=== PATIENT | female | born 1965 | race Hispanic/Latino ===

== ENCOUNTER 2020-07-02 17:11 | Inpatient (IN) | payer OTHER ==
--- NOTE | 2020-07-02 19:24 | Emergency Department Report ---
HPI - General Chief Complaint: Dyspnea/Respdistress Time Seen by Provider: 07/02/20 19:02 - [facility] HPI: Room 17 The patient is a 54-year-old female present with a chief complaint of shortness of breath. Patient states she tested positive for COVID-19 approximate 1 week ago. Patient states her symptoms included a nonproductive cough fatigue and fever. The patient states this afternoon she developed shortness of breath. Patient has not on home O2. Patient's was admitted to the ICU for COVID-19 ED Past Medical Hx - Past Medical History Previous Medical History?: Yes Additional medical history: FIBROMYALGIA, TACHAYCARDIA - Surgical History Past Surgical History?: Yes Hx Cholecystectomy: Yes Hx Appendectomy: Yes - Family History Family history: no significant - Social History Smoking Status: Never Smoker Substance Use Type: None ED Review of Systems ROS: Stated complaint: COVID-19 POSITIVE Other details as noted in HPI Constitutional: fever, malaise Eyes: denies: eye pain ENT: denies: throat pain Respiratory: cough, shortness of breath Cardiovascular: denies: chest pain Endocrine: no symptoms reported Gastrointestinal: denies: abdominal pain Genitourinary: denies: dysuria Musculoskeletal: denies: back pain Neurological: denies: headache Physical Exam - Physical Exam Vital Signs: Vital Signs 07/02/20 07/02/20 07/02/20 17:30 17:36 17:45 Temperature 98.1 F Pulse Rate 112 H 111 H 108 H Respiratory 26 H 24 22 Rate Blood Pressure 130/77 130/77 O2 Sat by Pulse 97 98 Oximetry 07/02/20 07/02/20 07/02/20 18:00 18:15 18:30 Temperature Pulse Rate 115 H 115 H 119 H Respiratory 24 19 28 H Rate Blood Pressure 135/69 135/69 130/73 O2 Sat by Pulse 92 92 89 Oximetry 07/02/20 18:45 Temperature Pulse Rate 114 H Respiratory 27 H Rate Blood Pressure 130/73 O2 Sat by Pulse 91 Oximetry Physical Exam: GENERAL: The patient is well-developed well-nourished female lying on stretcher not appearing to be in acute distress. [] HEENT: Normocephalic. Atraumatic. Extraocular motions are intact. Patient has moist mucous membranes. NECK: Supple. No meningitic signs are noted. There is no adenopathy noted. CHEST/LUNGS: Clear to auscultation. There is no respiratory distress noted. HEART/CARDIOVASCULAR: Regular. There is tachycardia. There is no gallop rub or murmur. ABDOMEN: Abdomen is soft, nontender. Patient has normal bowel sounds. There is no abdominal distention. SKIN: There is no rash. There is no edema. There is no diaphoresis. NEURO: The patient is awake, alert, and oriented. The patient is cooperative. The patient has normal speech MUSCULOSKELETAL: There is no evidence of acute injury. ED Course Vital Signs 07/02/20 07/02/20 07/02/20 17:30 17:36 17:45 Temperature 98.1 F Pulse Rate 112 H 111 H 108 H Respiratory 26 H 24 22 Rate Blood Pressure 130/77 130/77 O2 Sat by Pulse 97 98 Oximetry 07/02/20 07/02/20 07/02/20 18:00 18:15 18:30 Temperature Pulse Rate 115 H 115 H 119 H Respiratory 24 19 28 H Rate Blood Pressure 135/69 135/69 130/73 O2 Sat by Pulse 92 92 89 Oximetry 07/02/20 18:45 Temperature Pulse Rate 114 H Respiratory 27 H Rate Blood Pressure 130/73 O2 Sat by Pulse 91 Oximetry ED Medical Decision Making - Lab Data Result diagrams: 07/02/20 19:23 07/02/20 19:23 Laboratory Tests 07/02/20 07/02/20 07/02/20 19:23 19:23 19:23 WBC 7.3 RBC 4.63 Hgb 14.7 H Hct 42.1 MCV 91 MCH 32 MCHC 35 H RDW 12.6 L Plt Count 279 Lymph % (Auto) 16.0 [place] % (Auto) 12.5 H Eos % (Auto) 0.2 Baso % (Auto) 0.2 Lymph # (Auto) 1.2 [place] # (Auto) 0.9 H Eos # (Auto) 0.0 Baso # (Auto) 0.0 Seg Neutrophils % 71.1 H Seg Neutrophils # 5.2 PT 13.7 INR 1.07 D-Dimer 767.52 H ABG pH ABG pCO2 ABG pO2 ABG HCO3 ABG O2 Saturation ABG O2 Content ABG Base Excess ABG Hemoglobin ABG Carboxyhemoglobin ABG Methemoglobin Oxyhemoglobin FiO2 Sodium 132 L Potassium 3.1 L Chloride 91.8 L Carbon Dioxide 29 Anion Gap 14 BUN 7 Creatinine 0.6 Estimated GFR > 60 BUN/Creatinine Ratio 12 Glucose 99 Calcium 9.3 Ferritin Lactate Dehydrogenase Total Creatine Kinase 153 H CK-MB (CK-2) 1.6 CK-MB (CK-2) Rel Index 1.0 Troponin T < 0.010 C-Reactive Protein NT-Pro-B Natriuret Pep 83.89 07/02/20 07/02/20 07/02/20 19:23 19:23 19:40 WBC RBC Hgb Hct MCV MCH MCHC RDW Plt Count Lymph % (Auto) [place] % (Auto) Eos % (Auto) Baso % (Auto) Lymph # (Auto) [place] # (Auto) Eos # (Auto) Baso # (Auto) Seg Neutrophils % Seg Neutrophils # PT INR D-Dimer ABG pH 7.462 H ABG pCO2 38.1 ABG pO2 51.9 L ABG HCO3 26.6 H ABG O2 Saturation 90.1 L ABG O2 Content 17.7 ABG Base Excess 2.8 ABG Hemoglobin 14.3 ABG Carboxyhemoglobin 1.2 ABG Methemoglobin 0.6 Oxyhemoglobin 88.4 L FiO2 21 Sodium Potassium Chloride Carbon Dioxide Anion Gap BUN Creatinine Estimated GFR BUN/Creatinine Ratio Glucose 99 Calcium Ferritin 1336.0 H Lactate Dehydrogenase 394 H Total Creatine Kinase CK-MB (CK-2) CK-MB (CK-2) Rel Index Troponin T C-Reactive Protein 28.10 H NT-Pro-B Natriuret Pep - Radiology Data Radiology results: report reviewed (Chest x-ray), image reviewed (Chest x-ray) interpreted by me: Chest [id number] patchy infiltrates. No pneumothorax. No foreign body seen Chest x-ray (read by radiologist)-patchy bilateral pulmonary opacities are concerning for multifocal pneumonia or atypical viral infection. - Differential Diagnosis COVID-19 Critical care attestation.: If time is entered above; I have spent that time in minutes in the direct care of this critically ill patient, excluding procedure time. ED Disposition Clinical Impression: COVID-19, Hypoxia, Bilateral pneumonia Disposition: OP ADMIT IP TO THIS HOSP Is pt being admited?: Yes Condition: Serious Instructions: Bacterial Pneumonia (ED) Referrals: [facility] [Other] - 3-5 Days Time of Disposition: 20:19 (Hospitalist paged)
[2020-07-02 19:54] LABS: Basophils % (Auto) 0.2 % (0.0-1.8); Eosinophils % (Auto) 0.2 % (0.0-4.3); Hematocrit 42.1 % (30.3-42.9); Hemoglobin 14.7 gm/dl (10.1-14.3); Lymphocytes # (Auto) 1.2 K/mm3 (1.2-5.4); Mean Corpuscular HGB Conc 35 % (30-34); Mean Corpuscular Volume 91 fl (79-97); Monocytes # (Auto) 0.9 K/mm3 (0.0-0.8); Monocytes % (Auto) 12.5 % (0.0-7.3); Platelet Count 279 K/mm3 (140-440); Red Blood Count 4.63 M/mm3 (3.65-5.03); Red Cell Distribution Width 12.6 % (13.2-15.2)
[2020-07-02 19:58] LABS: ABG Base Excess 2.8 mmol/L (-2.0-3.0); ABG HCO3 26.6 mmol/L (20.0-26.0); ABG Methemoglobin 0.6 % (0.0-1.5); ABG Oxygen Saturation 90.1 % (95.0-99.0); ABG PCO2 38.1 mm Hg; ABG PH 7.462 pH Units (7.350-7.450); ABG PO2 51.9 mm Hg (80.0-90.0)
[2020-07-02 20:07] LABS: Creatine Kinase MB 1.6 ng/mL (0.0-4.0)
[2020-07-02 20:08] LABS: C-Reactive Protein 28.1 mg/dL (0.00-1.30); INR 1.07 (0.87-1.13)
--- NOTE | 2020-07-02 20:08 | XRay Report ---
CHEST 1 VIEW 07/02/2020 6:56 PM INDICATION / CLINICAL INFORMATION: Shortness of breath, cough, Covid positive. COMPARISON: None available. FINDINGS: SUPPORT DEVICES: None. HEART / MEDIASTINUM: No significant abnormality. LUNGS / PLEURA: There are patchy bilateral pulmonary opacities. No pneumothorax. ADDITIONAL FINDINGS: No significant additional findings. IMPRESSION: 1. Patchy bilateral pulmonary opacities are concerning for multifocal pneumonia or atypical viral inf ection. Signer Name: Aman Blanton MD Signed: 07/02/2020 8:04 PM Workstation Name: [id number]
[2020-07-02 20:09] LABS: Blood Urea Nitrogen 7 mg/dL (7-17); Calcium 9.3 mg/dL (8.4-10.2); Hemolysis Index 7
[2020-07-02 20:11] LABS: BUN/Creatinine Ratio 12
[2020-07-02] MEDS ORDERED: POTASSIUM CHLORIDE ER 20 MEQ TAB PO ONE (20:14)
[2020-07-02] MEDS ORDERED: AZITHROMYCIN 500 MG in SODIUM CHLORIDE 0.9% 250ML 250 ML IV ONE (21:18)
[2020-07-02] MEDS ORDERED: dexAMETHasone 4 MG/ML VIAL IV NR (22:00)
[2020-07-02] MEDS ORDERED: ACETAMINOPHEN 325 MG TAB PO PRN (22:29)
[2020-07-02] MEDS ORDERED: MAGNESIUM HYDROXIDE (MOM) ORAL LIQD UDC PO PRN (22:29)
[2020-07-02] MEDS ORDERED: ONDANSETRON 4 MG/2 ML INJ IV PRN (22:29)
--- NOTE | 2020-07-02 22:38 | History and Physical Report ---
History of Present Illness Date of examination: 07/02/20 Date of admission: 07/02/20 20:22 Chief complaint: Cough Fever Shortness of Breath History of present illness: 54-year-old female with no significant past medical history except fibromyalgia presenting to the emergency room today complaining of shortness of breath. She tested positive for COVID-19 about a week ago is also currently on admission in the ICU for COVID-19. She has been having a nonproductive cough, generalized fatigue and fever. Shortness of breath is said to have gotten worse sometime this afternoon and therefore decided to present in the emergency room. She denies any chest pain, no nausea vomiting, no abdominal pain, no diarrhea, no hematuria or dysuria. Upon arrival in the in the ER today oxygen saturation was about 88%. Work-up today reveals bilateral infiltrates seen on the chest x-ray. Labs shows mild hypokalemia of 3.1. Patient is being admitted with pneumonia possibly secondary to COVID-19. Past History Past Medical History: other (Fibromyalgia,Tachycardia) Past Surgical History: appendectomy, cholecystectomy Social history: no significant social history Family history: no significant family history Medications and Allergies Allergies Allergy/AdvReac Type Severity Reaction Status Date / Time codeine Allergy Unknown Verified 07/02/20 21:01 Penicillins Allergy Anaphylaxis Verified 07/02/20 21:01 Active Meds: Active Medications Acetaminophen (Acetaminophen 325 Mg Tab) 650 mg PO Q4H PRN PRN Reason: Pain MILD(1-3)/Fever >100.5/COLEY Enoxaparin Sodium (Enoxaparin 40 Mg/0.4 Ml Inj) 40 mg SUB-Q QDAY@2200 JAE; Protocol Levofloxacin/Dextrose (Levaquin 500mg/100ml) 500 mg in 100 mls @ 100 mls/hr IV ONCE ONE; Protocol Stop: 07/02/20 22:43 Last Admin: 07/02/20 22:01 Dose: 100 mls/hr Documented by: Levofloxacin/Dextrose (Levaquin 750mg/150ml) 750 mg in 150 mls @ 100 mls/hr IV Q24H JAE; Protocol Magnesium Hydroxide (Magnesium Hydroxide (Mom) Oral Liqd Udc) 30 ml PO Q4H PRN PRN Reason: Constipation Ondansetron HCl (Ondansetron 4 Mg/2 Ml Inj) 4 mg IV Q8H PRN PRN Reason: Nausea And Vomiting Sodium Chloride (Sodium Chloride 0.9% 10 Ml Flush Syringe) 10 ml IV BID JAE Sodium Chloride (Sodium Chloride 0.9% 10 Ml Flush Syringe) 10 ml IV PRN PRN PRN Reason: LINE FLUSH Review of Systems Constitutional: fever, chills, fatigue Ears, nose, mouth and throat: no nasal congestion, no sore throat Cardiovascular: no chest pain, no palpitations Respiratory: cough, shortness of breath Gastrointestinal: no abdominal pain, no nausea, no vomiting, no diarrhea Genitourinary Female: no flank pain, no dysuria, no nocturia Musculoskeletal: no neck pain, no low back pain Integumentary: no rash, no pruritis Neurological: no headaches, no confusion Psychiatric: no anxiety, no depression Exam - Constitutional Vitals: Temp Pulse Resp BP Pulse Ox 98.1 F 106 H 22 120/67 95 07/02/20 17:36 07/02/20 20:00 07/02/20 20:00 07/02/20 20:00 07/02/20 20:09 General appearance: Present: no acute distress, well-nourished - EENT Eyes: Present: PERRL, EOM intact. Absent: scleral icterus ENT: hearing intact, clear oral mucosa, dentition normal - Neck Neck: Present: supple, normal ROM - Respiratory Respiratory effort: normal Respiratory: bilateral: diminished - Cardiovascular Rhythm: regular Heart Sounds: Present: S1 & S2. Absent: gallop, systolic murmur, diastolic murmur, rub - Extremities Extremities: no ischemia, pulses intact, pulses symmetrical, No edema, normal temperature, normal color, Full ROM Peripheral Pulses: within normal limits - Abdominal General gastrointestinal: Present: soft, non-tender, non-distended, normal bowel sounds - Integumentary Integumentary: Present: clear, warm, dry. Absent: rash - Musculoskeletal Musculoskeletal: strength equal bilaterally - Psychiatric Psychiatric: appropriate mood/affect, intact judgment & insight, memory intact, cooperative - Neurologic Neurologic: CNII-XII intact, no focal deficits, moves all extremities HEART Score - HEART Score Troponin: Troponin T < 0.010 ng/mL (0.00-0.029) 07/02/20 19:23 Results - Labs CBC & Chem 7: 07/02/20 19:23 07/02/20 19:23 Labs: Abnormal lab results 07/02/20 07/02/20 07/02/20 Range/Units 19:23 19:23 19:23 Hgb 14.7 H (10.1-14.3) gm/dl MCHC 35 H (30-34) % RDW 12.6 L (13.2-15.2) % [place] % (Auto) 12.5 H (0.0-7.3) % [place] # (Auto) 0.9 H (0.0-0.8) K/mm3 Seg Neutrophils % 71.1 H (40.0-70.0) % D-Dimer 767.52 H (0-234) ng/mlDDU ABG pH (7.350-7.450) pH Units ABG pO2 (80.0-90.0) mm Hg ABG HCO3 (20.0-26.0) mmol/L ABG O2 Saturation (95.0-99.0) % Oxyhemoglobin (95.0-99.0) % Sodium 132 L (137-145) mmol/L Potassium 3.1 L (3.6-5.0) mmol/L Chloride 91.8 L (98-107) mmol/L Ferritin (10.0-200.0) ng/mL Lactate Dehydrogenase (91-180) units/L Total Creatine Kinase 153 H (30-135) units/L C-Reactive Protein (0.00-1.30) mg/dL 07/02/20 07/02/20 07/02/20 Range/Units 19:23 19:23 19:40 Hgb (10.1-14.3) gm/dl MCHC (30-34) % RDW (13.2-15.2) % [place] % (Auto) (0.0-7.3) % [place] # (Auto) (0.0-0.8) K/mm3 Seg Neutrophils % (40.0-70.0) % D-Dimer (0-234) ng/mlDDU ABG pH 7.462 H (7.350-7.450) pH Units ABG pO2 51.9 L (80.0-90.0) mm Hg ABG HCO3 26.6 H (20.0-26.0) mmol/L ABG O2 Saturation 90.1 L (95.0-99.0) % Oxyhemoglobin 88.4 L (95.0-99.0) % Sodium (137-145) mmol/L Potassium (3.6-5.0) mmol/L Chloride (98-107) mmol/L Ferritin 1336.0 H (10.0-200.0) ng/mL Lactate Dehydrogenase 394 H (91-180) units/L Total Creatine Kinase (30-135) units/L C-Reactive Protein 28.10 H (0.00-1.30) mg/dL Assessment and Plan - Patient Problems (1) Bilateral pneumonia Current Visit: Yes Status: Acute Plan to address problem: Patient admitted and placed on antibiotics. We will await culture results. (2) COVID-19 Current Visit: Yes Status: Acute Plan to address problem: Patient placed on isolation precautions patient. Consult placed to infectious disease for evaluation. Patient also placed on IV steroid. (3) Hypoxia Current Visit: Yes Status: Acute Plan to address problem: Possibly secondary to the Covid pneumonia. We will keep O2 saturation greater or equal to 94%. (4) Hypokalemia Current Visit: Yes Status: Acute Plan to address problem: We will replete potassium and monitor chemistry. (5) DVT prophylaxis Current Visit: Yes Status: Acute Plan to address problem: Patient placed on subcutaneous Lovenox. (6) Full code status Current Visit: Yes Status: Acute Plan to address problem: Patient is full code
[2020-07-03] MEDS ORDERED: dexAMETHasone 4 MG/ML VIAL IV ONE (04:44)
[2020-07-03 05:19] LABS: Basophils % (Auto) 0.1 % (0.0-1.8); Hematocrit 40.7 % (30.3-42.9); Hemoglobin 14.1 gm/dl (10.1-14.3); Lymphocytes # (Auto) 0.7 K/mm3 (1.2-5.4); Lymphocytes % (Auto) 12.2 % (13.4-35.0); Mean Corpuscular HGB Conc 35 % (30-34); Mean Corpuscular Volume 91 fl (79-97); Monocytes # (Auto) 0.3 K/mm3 (0.0-0.8); Monocytes % (Auto) 5.1 % (0.0-7.3); Platelet Count 304 K/mm3 (140-440); Red Blood Count 4.45 M/mm3 (3.65-5.03); Red Cell Distribution Width 12.7 % (13.2-15.2)
[2020-07-03 05:27] LABS: INR 1.13 (0.87-1.13)
[2020-07-03 05:33] LABS: Blood Urea Nitrogen 11 mg/dL (7-17); Calcium 9.4 mg/dL (8.4-10.2); Hemolysis Index 4
[2020-07-03 05:34] LABS: BUN/Creatinine Ratio 16
[2020-07-03] MEDS: dexAMETHasone 4 MG/ML VIAL IV SCH (10:58)
--- NOTE | 2020-07-03 13:08 | Progress Note ---
Assessment and Plan Assessment and plan: (1) Bilateral pneumonia Current Visit: Yes Status: Acute Plan to address problem: Patient admitted and placed on antibiotics. We will await culture results. (2) COVID-19 Current Visit: Yes Status: Acute Plan to address problem: Patient placed on isolation precautions patient. Consult placed to infectious disease for evaluation. Patient also placed on IV steroid. (3) Hypoxia Current Visit: Yes Status: Acute Plan to address problem: Possibly secondary to the Covid pneumonia. We will keep O2 saturation greater or equal to 94%. (4) Hypokalemia Current Visit: Yes Status: Acute Plan to address problem: We will replete potassium and monitor chemistry. (5) DVT prophylaxis Current Visit: Yes Status: Acute Plan to address problem: Patient placed on subcutaneous Lovenox. (6) Full code status Current Visit: Yes Status: Acute Plan to address problem: Patient is full code 07/03/2020; patient is on IV Levaquin for bilateral pneumonia. Patient is on 3 L of intranasal oxygen for hypoxia. Patient was given dexamethasone. Patient was diagnosed with Covid before admission and will repeat Covid test. ID consulted. History Interval history: Patient was seen and evaluated this morning Patient is on intranasal oxygen Patient does not have any complaints Patient's is in the ICU for COVID-19 infection and intubated and on mechanical ventilation. Hospitalist Physical - Physical exam Narrative exam: Not in cardiopulmonary distress. The patient is obese. Vital signs as documented. Head exam is unremarkable. No scleral icterus . Neck is without jugular venous distension, thyromegaly, or carotid bruits. Lungs are clear to auscultation. Cardiac exam reveals regular rate and Rhythm. Abdominal exam reveals normal bowel sounds, nontender, no organomegaly. Extremities are nonedematous and both femoral and pedal pulses are normal. [employer]: Alert and oriented 3. No focal weakness. - Constitutional Vitals: Temp Pulse Resp BP Pulse Ox 97.6 F 93 H 25 H 117/65 94 07/03/20 07:52 07/03/20 07:52 07/03/20 07:52 07/03/20 07:52 07/03/20 07:52 General appearance: Present: no acute distress, well-nourished HEART Score - HEART Score Troponin: Troponin T < 0.010 ng/mL (0.00-0.029) 07/02/20 19:23 Results - Labs CBC & Chem 7: 07/03/20 04:39 07/03/20 04:39 Labs: Laboratory Last Values WBC 5.6 K/mm3 (4.5-11.0) 07/03/20 04:39 RBC 4.45 M/mm3 (3.65-5.03) 07/03/20 04:39 Hgb 14.1 gm/dl (10.1-14.3) 07/03/20 04:39 Hct 40.7 % (30.3-42.9) 07/03/20 04:39 MCV 91 fl (79-97) 07/03/20 04:39 MCH 32 pg (28-32) 07/03/20 04:39 MCHC 35 % (30-34) H 07/03/20 04:39 RDW 12.7 % (13.2-15.2) L 07/03/20 04:39 Plt Count 304 K/mm3 (140-440) 07/03/20 04:39 Lymph % (Auto) 12.2 % (13.4-35.0) L 07/03/20 04:39 [place] % (Auto) 5.1 % (0.0-7.3) 07/03/20 04:39 Eos % (Auto) 0.0 % (0.0-4.3) 07/03/20 04:39 Baso % (Auto) 0.1 % (0.0-1.8) 07/03/20 04:39 Lymph # (Auto) 0.7 K/mm3 (1.2-5.4) L 07/03/20 04:39 [place] # (Auto) 0.3 K/mm3 (0.0-0.8) 07/03/20 04:39 Eos # (Auto) 0.0 K/mm3 (0.0-0.4) 07/03/20 04:39 Baso # (Auto) 0.0 K/mm3 (0.0-0.1) 07/03/20 04:39 Seg Neutrophils % 82.6 % (40.0-70.0) H 07/03/20 04:39 Seg Neutrophils # 4.6 K/mm3 (1.8-7.7) 07/03/20 04:39 PT 14.3 Sec. (12.2-14.9) 07/03/20 04:39 INR 1.13 (0.87-1.13) 07/03/20 04:39 D-Dimer 767.52 ng/mlDDU (0-234) H 07/02/20 19:23 ABG pH 7.462 pH Units (7.350-7.450) H 07/02/20 19:40 ABG pCO2 38.1 mm Hg 07/02/20 19:40 ABG pO2 51.9 mm Hg (80.0-90.0) L 07/02/20 19:40 ABG HCO3 26.6 mmol/L (20.0-26.0) H 07/02/20 19:40 ABG O2 Saturation 90.1 % (95.0-99.0) L 07/02/20 19:40 ABG O2 Content 17.7 (0.0-44) 07/02/20 19:40 ABG Base Excess 2.8 mmol/L (-2.0-3.0) 07/02/20 19:40 ABG Hemoglobin 14.3 gm/dl (12.0-16.0) 07/02/20 19:40 ABG Carboxyhemoglobin 1.2 % (0.0-5.0) 07/02/20 19:40 ABG Methemoglobin 0.6 % (0.0-1.5) 07/02/20 19:40 Oxyhemoglobin 88.4 % (95.0-99.0) L 07/02/20 19:40 FiO2 21 % 07/02/20 19:40 Sodium 134 mmol/L (137-145) L 07/03/20 04:39 Potassium 5.0 mmol/L (3.6-5.0) D 07/03/20 04:39 Chloride 93.4 mmol/L (98-107) L 07/03/20 04:39 Carbon Dioxide 29 mmol/L (22-30) 07/03/20 04:39 Anion Gap 17 mmol/L 07/03/20 04:39 BUN 11 mg/dL (7-17) 07/03/20 04:39 Creatinine 0.7 mg/dL (0.6-1.2) 07/03/20 04:39 Estimated GFR > 60 ml/min 07/03/20 04:39 BUN/Creatinine Ratio 16 % 07/03/20 04:39 Glucose 148 mg/dL (65-100) H 07/03/20 04:39 Calcium 9.4 mg/dL (8.4-10.2) 07/03/20 04:39 Ferritin 1336.0 ng/mL (10.0-200.0) H 07/02/20 19:23 Lactate Dehydrogenase 394 units/L (91-180) H 07/02/20 19:23 Total Creatine Kinase 153 units/L (30-135) H 07/02/20 19:23 CK-MB (CK-2) 1.6 ng/mL (0.0-4.0) 07/02/20 19:23 CK-MB (CK-2) Rel Index 1.0 (0-4) 07/02/20 19:23 Troponin T < 0.010 ng/mL (0.00-0.029) 07/02/20 19:23 C-Reactive Protein 28.10 mg/dL (0.00-1.30) H 07/02/20 19:23 NT-Pro-B Natriuret Pep 83.89 pg/mL (0-900) 07/02/20 19:23 Microbiology: Microbiology 07/02/20 19:48 Peripheral/Venous Blood Culture - Preliminary Culture in Progress 07/02/20 19:45 Peripheral/Venous Blood Culture - Preliminary Culture in Progress [place]/IV: IV Catheter Type [Right Peripheral IV Antecubital] Active Medications - Current Medications Current Medications: Generic Name Dose Route Start Last Admin Trade Name Freq PRN Reason Stop Dose Admin Acetaminophen 650 mg 07/02/20 22:29 Acetaminophen 325 Mg Tab PO Q4H PRN Pain MILD(1-3)/Fever >100.5/COLEY Dexamethasone 6 mg 07/03/20 10:00 07/03/20 10:58 Dexamethasone 4 Mg/Ml Vial IV 07/11/20 10:01 6 mg Q24HR JAE Administration Enoxaparin Sodium 40 mg 07/03/20 22:00 Enoxaparin 40 Mg/0.4 Ml Inj SUB-Q QDAY@2200 [facility] Protocol Levofloxacin/Dextrose 750 mg in 150 mls @ 100 mls/hr 07/03/20 10:00 07/03/20 10:59 Levaquin 750mg/150ml IV 100 mls/hr Q24H JAE Administration Protocol Magnesium Hydroxide 30 ml 07/02/20 22:29 Magnesium Hydroxide (Mom) Oral Liqd Udc PO Q4H PRN Constipation Ondansetron HCl 4 mg 07/02/20 22:29 Ondansetron 4 Mg/2 Ml Inj IV Q8H PRN Nausea And Vomiting Sodium Chloride 10 ml 07/03/20 10:00 07/03/20 11:00 Sodium Chloride 0.9% 10 Ml Flush Syringe IV 10 ml BID JAE Administration Sodium Chloride 10 ml 07/02/20 22:29 Sodium Chloride 0.9% 10 Ml Flush Syringe IV PRN PRN LINE FLUSH
[2020-07-03] MEDS ORDERED: ENOXAPARIN 40 MG/0.4 ML INJ SUB-Q SCH (22:00)
[2020-07-03] MEDS ORDERED: dexAMETHasone 4 MG/ML VIAL IV SCH (22:00)
[2020-07-04 06:59] LABS: Blood Urea Nitrogen 13 mg/dL (7-17); Calcium 9.7 mg/dL (8.4-10.2); Hemolysis Index 65
[2020-07-04 07:02] LABS: BUN/Creatinine Ratio 19
--- NOTE | 2020-07-04 08:47 | Progress Note ---
Assessment and Plan Assessment and plan: (1) Bilateral pneumonia Current Visit: Yes Status: Acute Plan to address problem: Patient admitted and placed on antibiotics. We will await culture results. (2) COVID-19 Current Visit: Yes Status: Acute Plan to address problem: Patient placed on isolation precautions patient. Consult placed to infectious disease for evaluation. Patient also placed on IV steroid. (3) Hypoxia Current Visit: Yes Status: Acute Plan to address problem: Possibly secondary to the Covid pneumonia. We will keep O2 saturation greater or equal to 94%. (4) Hypokalemia Current Visit: Yes Status: Acute Plan to address problem: We will replete potassium and monitor chemistry. (5) DVT prophylaxis Current Visit: Yes Status: Acute Plan to address problem: Patient placed on subcutaneous Lovenox. (6) Full code status Current Visit: Yes Status: Acute Plan to address problem: Patient is full code 07/03/2020; patient is on IV Levaquin for bilateral pneumonia. Patient is on 3 L of intranasal oxygen for hypoxia. Patient was given dexamethasone. Patient was diagnosed with Covid before admission and will repeat Covid test. ID consulted. 07/04/2020; patient is on IV Levaquin for bilateral pneumonia. Patient is on IV dexamethasone. COVID-19 test is positive. Patient is on 3 L of oxygen. Consulted. History Interval history: Patient was seen and evaluated this morning Patient is on 3 L intranasal oxygen Patient does not have any complaints Patient's is in the ICU for COVID-19 infection and intubated and on mechanical ventilation. Hospitalist Physical - Physical exam Narrative exam: Not in cardiopulmonary distress. The patient is obese. Vital signs as documented. Head exam is unremarkable. No scleral icterus . Neck is without jugular venous distension, thyromegaly, or carotid bruits. Lungs are clear to auscultation. Cardiac exam reveals regular rate and Rhythm. Abdominal exam reveals normal bowel sounds, nontender, no organomegaly. Extremities are nonedematous and both femoral and pedal pulses are normal. 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 No focal weakness. - Constitutional Vitals: Temp Pulse Resp BP Pulse Ox 97.4 F L 93 H 20 118/72 95 07/04/20 07:20 07/04/20 07:43 07/04/20 07:38 07/04/20 07:20 07/04/20 07:38 General appearance: Present: no acute distress, well-nourished HEART Score - HEART Score Troponin: Troponin T < 0.010 ng/mL (0.00-0.029) 07/02/20 19:23 Results - Labs CBC & Chem 7: 07/03/20 04:39 07/04/20 06:23 Labs: Laboratory Last Values WBC 5.6 K/mm3 (4.5-11.0) 07/03/20 04:39 RBC 4.45 M/mm3 (3.65-5.03) 07/03/20 04:39 Hgb 14.1 gm/dl (10.1-14.3) 07/03/20 04:39 Hct 40.7 % (30.3-42.9) 07/03/20 04:39 MCV 91 fl (79-97) 07/03/20 04:39 MCH 32 pg (28-32) 07/03/20 04:39 MCHC 35 % (30-34) H 07/03/20 04:39 RDW 12.7 % (13.2-15.2) L 07/03/20 04:39 Plt Count 304 K/mm3 (140-440) 07/03/20 04:39 Lymph % (Auto) 12.2 % (13.4-35.0) L 07/03/20 04:39 [place] % (Auto) 5.1 % (0.0-7.3) 07/03/20 04:39 Eos % (Auto) 0.0 % (0.0-4.3) 07/03/20 04:39 Baso % (Auto) 0.1 % (0.0-1.8) 07/03/20 04:39 Lymph # (Auto) 0.7 K/mm3 (1.2-5.4) L 07/03/20 04:39 [place] # (Auto) 0.3 K/mm3 (0.0-0.8) 07/03/20 04:39 Eos # (Auto) 0.0 K/mm3 (0.0-0.4) 07/03/20 04:39 Baso # (Auto) 0.0 K/mm3 (0.0-0.1) 07/03/20 04:39 Seg Neutrophils % 82.6 % (40.0-70.0) H 07/03/20 04:39 Seg Neutrophils # 4.6 K/mm3 (1.8-7.7) 07/03/20 04:39 PT 14.3 Sec. (12.2-14.9) 07/03/20 04:39 INR 1.13 (0.87-1.13) 07/03/20 04:39 D-Dimer 767.52 ng/mlDDU (0-234) H 07/02/20 19:23 ABG pH 7.462 pH Units (7.350-7.450) H 07/02/20 19:40 ABG pCO2 38.1 mm Hg 07/02/20 19:40 ABG pO2 51.9 mm Hg (80.0-90.0) L 07/02/20 19:40 ABG HCO3 26.6 mmol/L (20.0-26.0) H 07/02/20 19:40 ABG O2 Saturation 90.1 % (95.0-99.0) L 07/02/20 19:40 ABG O2 Content 17.7 (0.0-44) 07/02/20 19:40 ABG Base Excess 2.8 mmol/L (-2.0-3.0) 07/02/20 19:40 ABG Hemoglobin 14.3 gm/dl (12.0-16.0) 07/02/20 19:40 ABG Carboxyhemoglobin 1.2 % (0.0-5.0) 07/02/20 19:40 ABG Methemoglobin 0.6 % (0.0-1.5) 07/02/20 19:40 Oxyhemoglobin 88.4 % (95.0-99.0) L 07/02/20 19:40 FiO2 21 % 07/02/20 19:40 Sodium 136 mmol/L (137-145) L 07/04/20 06:23 Potassium 4.6 mmol/L (3.6-5.0) 07/04/20 06:23 Chloride 96.8 mmol/L (98-107) L 07/04/20 06:23 Carbon Dioxide 32 mmol/L (22-30) H 07/04/20 06:23 Anion Gap 12 mmol/L 07/04/20 06:23 BUN 13 mg/dL (7-17) 07/04/20 06:23 Creatinine 0.7 mg/dL (0.6-1.2) 07/04/20 06:23 Estimated GFR > 60 ml/min 07/04/20 06:23 BUN/Creatinine Ratio 19 % 07/04/20 06:23 Glucose 155 mg/dL (65-100) H 07/04/20 06:23 Calcium 9.7 mg/dL (8.4-10.2) 07/04/20 06:23 Ferritin 1336.0 ng/mL (10.0-200.0) H 07/02/20 19:23 Lactate Dehydrogenase 394 units/L (91-180) H 07/02/20 19:23 Total Creatine Kinase 153 units/L (30-135) H 07/02/20 19:23 CK-MB (CK-2) 1.6 ng/mL (0.0-4.0) 07/02/20 19:23 CK-MB (CK-2) Rel Index 1.0 (0-4) 07/02/20 19:23 Troponin T < 0.010 ng/mL (0.00-0.029) 07/02/20 19:23 C-Reactive Protein 28.10 mg/dL (0.00-1.30) H 07/02/20 19:23 NT-Pro-B Natriuret Pep 83.89 pg/mL (0-900) 07/02/20 19:23 Procalcitonin < 0.05 ng/mL (<0.15) 07/02/20 19:23 Coronavirus (PCR) Positive (Negative) A 07/03/20 11:58 Microbiology: Microbiology 07/02/20 19:48 Peripheral/Venous Blood Culture - Preliminary NO GROWTH AFTER 24 HOURS 07/02/20 19:45 Peripheral/Venous Blood Culture - Preliminary NO GROWTH AFTER 24 HOURS [place]/IV: IV Catheter Type [Right Peripheral IV Antecubital] Active Medications - Current Medications Current Medications: Generic Name Dose Route Start Last Admin Trade Name Freq PRN Reason Stop Dose Admin Acetaminophen 650 mg 07/02/20 22:29 Acetaminophen 325 Mg Tab PO Q4H PRN Pain MILD(1-3)/Fever >100.5/COLEY Dexamethasone 6 mg 07/03/20 10:00 07/03/20 10:58 Dexamethasone 4 Mg/Ml Vial IV 07/11/20 10:01 6 mg Q24HR JAE Administration Enoxaparin Sodium 40 mg 07/03/20 22:00 07/03/20 23:36 Enoxaparin 40 Mg/0.4 Ml Inj SUB-Q 40 mg QDAY@2200 JAE Administration Protocol Levofloxacin/Dextrose 750 mg in 150 mls @ 100 mls/hr 07/03/20 10:00 07/03/20 10:59 Levaquin 750mg/150ml IV 100 mls/hr Q24H JAE Administration Protocol Magnesium Hydroxide 30 ml 07/02/20 22:29 Magnesium Hydroxide (Mom) Oral Liqd Udc PO Q4H PRN Constipation Ondansetron HCl 4 mg 07/02/20 22:29 Ondansetron 4 Mg/2 Ml Inj IV Q8H PRN Nausea And Vomiting Sodium Chloride 10 ml 07/03/20 10:00 07/03/20 23:36 Sodium Chloride 0.9% 10 Ml Flush Syringe IV 10 ml BID JAE Administration Sodium Chloride 10 ml 07/02/20 22:29 Sodium Chloride 0.9% 10 Ml Flush Syringe IV PRN PRN LINE FLUSH
[2020-07-04] MEDS: dexAMETHasone 4 MG/ML VIAL IV SCH (09:29)
--- NOTE | 2020-07-04 15:13 | Consultation ---
History of Present Illness - Reason for Consult Consult date: 07/04/20 COVID-19 Requesting physician: CHIN WARNER - History of Present Illness The patient is a 54-year-old female with fibromyalgia was admitted to the hospital with complaints of cough, fever and shortness of breath. Her tested positive for COVID-19 and is currently in the ICU. Patient got tested about a week ago and was positive. With progressive symptoms, she came to the ER, noted to be hypoxic on room air saturating 88%. Patient was admitted to the hospital, started on steroids and antibiotics. Infectious diseases was consulted for additional evaluation. Currently, afebrile but on oxygen by nasal cannula. Review of Systems: reviewed in the chart, unable to obtain, minimize risk of transmission Past History Past Medical History: other (Fibromyalgia,Tachycardia) Past Surgical History: appendectomy, cholecystectomy Social history: no significant social history Family history: no significant family history Medications and Allergies Allergies Allergy/AdvReac Type Severity Reaction Status Date / Time codeine Allergy Unknown Verified 07/02/20 21:01 Penicillins Allergy Anaphylaxis Verified 07/02/20 21:01 Active Meds: Active Medications Acetaminophen (Acetaminophen 325 Mg Tab) 650 mg PO Q4H PRN PRN Reason: Pain MILD(1-3)/Fever >100.5/COLEY Dexamethasone (Dexamethasone 4 Mg/Ml Vial) 6 mg IV Q24HR JAE Stop: 07/11/20 10:01 Last Admin: 07/04/20 09:29 Dose: 6 mg Documented by: Enoxaparin Sodium (Enoxaparin 40 Mg/0.4 Ml Inj) 40 mg SUB-Q BID JAE; Protocol Levofloxacin/Dextrose (Levaquin 750mg/150ml) 750 mg in 150 mls @ 100 mls/hr IV Q24H JAE; Protocol Last Admin: 07/04/20 09:30 Dose: 100 mls/hr Documented by: Magnesium Hydroxide (Magnesium Hydroxide (Mom) Oral Liqd Udc) 30 ml PO Q4H PRN PRN Reason: Constipation Ondansetron HCl (Ondansetron 4 Mg/2 Ml Inj) 4 mg IV Q8H PRN PRN Reason: Nausea And Vomiting Sodium Chloride (Sodium Chloride 0.9% 10 Ml Flush Syringe) 10 ml IV BID JAE Last Admin: 07/04/20 09:25 Dose: 10 ml Documented by: Sodium Chloride (Sodium Chloride 0.9% 10 Ml Flush Syringe) 10 ml IV PRN PRN PRN Reason: LINE FLUSH Physical Examination - Physical Exam Narrative exam: Physical Exam (reviewed in chart to minimize risk of transmission) Constitutional: deferred Head, Ears, Nose: deferred Eyes: deferred Neck: deferred Oral: deferred Cardiovascular: deferred Respiratory: deferred GI: deferred Musculoskeletal: deferred Skin: deferred Hem/Lymphatic: deferred Psych: deferred Neurological: deferred - Constitutional Vitals: Vital Signs Temp Pulse Resp BP Pulse Ox 97.4 F L 96 H 20 119/75 95 07/04/20 12:01 07/04/20 12:01 07/04/20 12:01 07/04/20 13:11 07/04/20 12:01 Temperature -Last 24 Hours Temperature 97.4 F Temperature 97.6 F Temperature 97.4 F Results - Labs CBC & Chem 7: 07/03/20 04:39 07/04/20 06:23 Labs: Abnormal lab results 07/03/20 07/04/20 Range/Units 11:58 06:23 Sodium 136 L (137-145) mmol/L Chloride 96.8 L (98-107) mmol/L Carbon Dioxide 32 H (22-30) mmol/L Glucose 155 H (65-100) mg/dL Coronavirus (PCR) Positive A (Negative) - Imaging and Cardiology Chest x-ray: report reviewed, image reviewed (b/l pneumonia) Assessment and Plan Cultures: SARS CoV2 PCR: Positive Blood culture: Negative A/P: 54-year-old female with fibromyalgia admitted with: #Bilateral pneumonia: Secondary to COVID-19 #Acute hypoxic respiratory failure: On oxygen by nasal cannula Recs: -Continue IV/PO Dexamethasone 6 mg daily x 10 days -Remdesivir ordered -Procalcitonin is low, antibiotics discontinued -prophylactic anticoagulation based on d-dimer per hospital protocol -trend ferritin, LDH, d-dimer, CRP every 2-3 days for risk stratification and to assess disease progression -oxygen weaning daily, if hypoxia resolves, Remdesivir can be stopped Erika Sweet MD, FACP [facility] ([facility]) O: [phone] F: [phone]
[2020-07-04] MEDS: ENOXAPARIN 40 MG/0.4 ML INJ SUB-Q SCH ×2 (16:35→22:06)
[2020-07-04] MEDS ORDERED: REMDESIVIR 200 MG in SODIUM CHLORIDE 0.9% 250ML 250 ML IV ONE (18:00)
[2020-07-04] MEDS: SODIUM CHLORIDE 0.9% 50 ML IVPB IV SCH (18:50)
--- NOTE | 2020-07-05 07:29 | Progress Note ---
Assessment and Plan Assessment and plan: (1) Bilateral pneumonia Current Visit: Yes Status: Acute Plan to address problem: Patient admitted and placed on antibiotics. We will await culture results. (2) COVID-19 Current Visit: Yes Status: Acute Plan to address problem: Patient placed on isolation precautions patient. Consult placed to infectious disease for evaluation. Patient also placed on IV steroid. (3) Hypoxia Current Visit: Yes Status: Acute Plan to address problem: Possibly secondary to the Covid pneumonia. We will keep O2 saturation greater or equal to 94%. (4) Hypokalemia Current Visit: Yes Status: Acute Plan to address problem: We will replete potassium and monitor chemistry. (5) DVT prophylaxis Current Visit: Yes Status: Acute Plan to address problem: Patient placed on subcutaneous Lovenox. (6) Full code status Current Visit: Yes Status: Acute Plan to address problem: Patient is full code 07/03/2020; patient is on IV Levaquin for bilateral pneumonia. Patient is on 3 L of intranasal oxygen for hypoxia. Patient was given dexamethasone. Patient was diagnosed with Covid before admission and will repeat Covid test. ID consulted. 07/04/2020; patient is on IV Levaquin for bilateral pneumonia. Patient is on IV dexamethasone. COVID-19 test is positive. Patient is on 3 L of oxygen. Consulted. 07/05/2020; IV antibiotic discontinued per ID recommendation. Patient is on dexamethasone. Patient started on remdesivir. Patient is on 3 L of oxygen. History Interval history: Patient was seen and evaluated this morning Patient is on 3 L intranasal oxygen Patient does not have any complaints Patient's is in the ICU for COVID-19 infection and intubated and on mechanical ventilation. Hospitalist Physical - Physical exam Narrative exam: Not in cardiopulmonary distress. The patient is obese. Vital signs as documented. Head exam is unremarkable. No scleral icterus . Neck is without jugular venous distension, thyromegaly, or carotid bruits. Lungs are clear to auscultation. Cardiac exam reveals regular rate and Rhythm. Abdominal exam reveals normal bowel sounds, nontender, no organomegaly. Extremities are nonedematous and both femoral and pedal pulses are normal. 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 No focal weakness. - Constitutional Vitals: Temp Pulse Resp BP Pulse Ox 97.3 F L 77 20 126/71 95 07/05/20 04:23 07/05/20 04:23 07/05/20 04:23 07/05/20 04:23 07/05/20 04:23 General appearance: Present: no acute distress, well-nourished HEART Score - HEART Score Troponin: Troponin T < 0.010 ng/mL (0.00-0.029) 07/02/20 19:23 Results - Labs CBC & Chem 7: 07/03/20 04:39 07/05/20 05:23 Labs: Laboratory Last Values WBC 5.6 K/mm3 (4.5-11.0) 07/03/20 04:39 RBC 4.45 M/mm3 (3.65-5.03) 07/03/20 04:39 Hgb 14.1 gm/dl (10.1-14.3) 07/03/20 04:39 Hct 40.7 % (30.3-42.9) 07/03/20 04:39 MCV 91 fl (79-97) 07/03/20 04:39 MCH 32 pg (28-32) 07/03/20 04:39 MCHC 35 % (30-34) H 07/03/20 04:39 RDW 12.7 % (13.2-15.2) L 07/03/20 04:39 Plt Count 304 K/mm3 (140-440) 07/03/20 04:39 Lymph % (Auto) 12.2 % (13.4-35.0) L 07/03/20 04:39 [place] % (Auto) 5.1 % (0.0-7.3) 07/03/20 04:39 Eos % (Auto) 0.0 % (0.0-4.3) 07/03/20 04:39 Baso % (Auto) 0.1 % (0.0-1.8) 07/03/20 04:39 Lymph # (Auto) 0.7 K/mm3 (1.2-5.4) L 07/03/20 04:39 [place] # (Auto) 0.3 K/mm3 (0.0-0.8) 07/03/20 04:39 Eos # (Auto) 0.0 K/mm3 (0.0-0.4) 07/03/20 04:39 Baso # (Auto) 0.0 K/mm3 (0.0-0.1) 07/03/20 04:39 Seg Neutrophils % 82.6 % (40.0-70.0) H 07/03/20 04:39 Seg Neutrophils # 4.6 K/mm3 (1.8-7.7) 07/03/20 04:39 PT 14.3 Sec. (12.2-14.9) 07/03/20 04:39 INR 1.13 (0.87-1.13) 07/03/20 04:39 D-Dimer 767.52 ng/mlDDU (0-234) H 07/02/20 19:23 ABG pH 7.462 pH Units (7.350-7.450) H 07/02/20 19:40 ABG pCO2 38.1 mm Hg 07/02/20 19:40 ABG pO2 51.9 mm Hg (80.0-90.0) L 07/02/20 19:40 ABG HCO3 26.6 mmol/L (20.0-26.0) H 07/02/20 19:40 ABG O2 Saturation 90.1 % (95.0-99.0) L 07/02/20 19:40 ABG O2 Content 17.7 (0.0-44) 07/02/20 19:40 ABG Base Excess 2.8 mmol/L (-2.0-3.0) 07/02/20 19:40 ABG Hemoglobin 14.3 gm/dl (12.0-16.0) 07/02/20 19:40 ABG Carboxyhemoglobin 1.2 % (0.0-5.0) 07/02/20 19:40 ABG Methemoglobin 0.6 % (0.0-1.5) 07/02/20 19:40 Oxyhemoglobin 88.4 % (95.0-99.0) L 07/02/20 19:40 FiO2 21 % 07/02/20 19:40 Sodium 136 mmol/L (137-145) L 07/04/20 06:23 Potassium 4.6 mmol/L (3.6-5.0) 07/04/20 06:23 Chloride 96.8 mmol/L (98-107) L 07/04/20 06:23 Carbon Dioxide 32 mmol/L (22-30) H 07/04/20 06:23 Anion Gap 12 mmol/L 07/04/20 06:23 BUN 13 mg/dL (7-17) 07/04/20 06:23 Creatinine 0.7 mg/dL (0.6-1.2) 07/04/20 06:23 Estimated GFR > 60 ml/min 07/04/20 06:23 BUN/Creatinine Ratio 19 % 07/04/20 06:23 Glucose 155 mg/dL (65-100) H 07/04/20 06:23 Calcium 9.7 mg/dL (8.4-10.2) 07/04/20 06:23 Ferritin 1336.0 ng/mL (10.0-200.0) H 07/02/20 19:23 Lactate Dehydrogenase 394 units/L (91-180) H 07/02/20 19:23 Total Creatine Kinase 153 units/L (30-135) H 07/02/20 19:23 CK-MB (CK-2) 1.6 ng/mL (0.0-4.0) 07/02/20 19:23 CK-MB (CK-2) Rel Index 1.0 (0-4) 07/02/20 19:23 Troponin T < 0.010 ng/mL (0.00-0.029) 07/02/20 19:23 C-Reactive Protein 28.10 mg/dL (0.00-1.30) H 07/02/20 19:23 NT-Pro-B Natriuret Pep 83.89 pg/mL (0-900) 07/02/20 19:23 Procalcitonin < 0.05 ng/mL (<0.15) 07/02/20 19:23 Coronavirus (PCR) Positive (Negative) A 07/03/20 11:58 Microbiology: Microbiology 07/02/20 19:48 Peripheral/Venous Blood Culture - Preliminary NO GROWTH AFTER 48 HOURS 07/02/20 19:45 Peripheral/Venous Blood Culture - Preliminary NO GROWTH AFTER 48 HOURS [place]/IV: Voiding Method Toilet IV Catheter Type [Right Peripheral IV Antecubital] Active Medications - Current Medications Current Medications: Generic Name Dose Route Start Last Admin Trade Name Freq PRN Reason Stop Dose Admin Acetaminophen 650 mg 07/02/20 22:29 Acetaminophen 325 Mg Tab PO Q4H PRN Pain MILD(1-3)/Fever >100.5/COLEY Dexamethasone 6 mg 07/03/20 10:00 07/04/20 09:29 Dexamethasone 4 Mg/Ml Vial IV 07/11/20 10:01 6 mg Q24HR JAE Administration Enoxaparin Sodium 40 mg 07/04/20 12:00 07/04/20 22:06 Enoxaparin 40 Mg/0.4 Ml Inj SUB-Q 40 mg BID JAE Administration Protocol REMDESIVIR 100 mg/ Sodium 250 mls @ 500 mls/hr 07/05/20 21:00 Chloride IV 07/08/20 21:29 Q24HR@2100 JAE Magnesium Hydroxide 30 ml 07/02/20 22:29 Magnesium Hydroxide (Mom) Oral Liqd Udc PO Q4H PRN Constipation Ondansetron HCl 4 mg 07/02/20 22:29 Ondansetron 4 Mg/2 Ml Inj IV Q8H PRN Nausea And Vomiting Sodium Chloride 10 ml 07/03/20 10:00 07/04/20 22:06 Sodium Chloride 0.9% 10 Ml Flush Syringe IV 10 ml BID JAE Administration Sodium Chloride 10 ml 07/02/20 22:29 Sodium Chloride 0.9% 10 Ml Flush Syringe IV PRN PRN LINE FLUSH Sodium Chloride 50 ml 07/04/20 18:00 07/04/20 18:50 Sodium Chloride 0.9% 50 Ml Ivpb IV 07/07/20 21:01 50 ml Q24HR@2100 JAE Administration
[2020-07-05 08:00] LABS: Blood Urea Nitrogen 14 mg/dL (7-17); Calcium 9.2 mg/dL (8.4-10.2); Hemolysis Index 9
[2020-07-05 08:36] LABS: BUN/Creatinine Ratio 23
[2020-07-05] MEDS: ENOXAPARIN 40 MG/0.4 ML INJ SUB-Q SCH ×2 (11:43→22:35)
[2020-07-05] MEDS: dexAMETHasone 4 MG/ML VIAL IV SCH (11:43)
--- NOTE | 2020-07-05 12:41 | Progress Note ---
Assessment and Plan Cultures: SARS CoV2 PCR: Positive Blood culture: Negative A/P: 54-year-old female with fibromyalgia admitted with: #Bilateral pneumonia: Secondary to COVID-19 #Acute hypoxic respiratory failure: On oxygen by nasal cannula Recs: -Continue IV/PO Dexamethasone 6 mg daily x 10 days -Remdesivir, D2 -Procalcitonin is low, antibiotics not needed -prophylactic anticoagulation based on d-dimer per hospital protocol -trend ferritin, LDH, d-dimer, CRP every 2-3 days for risk stratification and to assess disease progression -oxygen weaning daily along with ambulatory saturations, if hypoxia better, Remdesivir can be stopped Erika Sweet MD, FACP [facility] ([facility]) O: [phone] F: [phone] Subjective Date of service: 07/05/20 Interval history: No fever. On oxygen by nasal cannula at 3 L/min. Objective - Exam Narrative Exam: Physical Exam (reviewed in chart to minimize risk of transmission) Constitutional: deferred Head, Ears, Nose: deferred Eyes: deferred Neck: deferred Oral: deferred Cardiovascular: deferred Respiratory: deferred GI: deferred Musculoskeletal: deferred Skin: deferred Hem/Lymphatic: deferred Psych: deferred Neurological: deferred - Constitutional Vitals: Vital Signs Temp Pulse Resp BP Pulse Ox 97.3 F L 77 20 126/71 95 07/05/20 04:23 07/05/20 04:23 07/05/20 04:23 07/05/20 04:23 07/05/20 04:23 Temperature -Last 24 Hours Temperature 97.3 F Temperature 97.2 F Temperature 97.2 F - Labs CBC & Chem 7: 07/03/20 04:39 07/05/20 05:23 Labs: Abnormal lab results 07/05/20 Range/Units 05:23 Potassium 3.4 L D (3.6-5.0) mmol/L Glucose 110 H (65-100) mg/dL
[2020-07-05] MEDS ORDERED: REMDESIVIR 100 MG in SODIUM CHLORIDE 0.9% 250ML 250 ML IV SCH (21:00)
[2020-07-05] MEDS: SODIUM CHLORIDE 0.9% 50 ML IVPB IV SCH ×2 (22:20→22:40)
--- NOTE | 2020-07-06 07:51 | Progress Note ---
Assessment and Plan Assessment and plan: (1) Bilateral pneumonia Current Visit: Yes Status: Acute Plan to address problem: Patient admitted and placed on antibiotics. We will await culture results. (2) COVID-19 Current Visit: Yes Status: Acute Plan to address problem: Patient placed on isolation precautions patient. Consult placed to infectious disease for evaluation. Patient also placed on IV steroid. (3) Hypoxia Current Visit: Yes Status: Acute Plan to address problem: Possibly secondary to the Covid pneumonia. We will keep O2 saturation greater or equal to 94%. (4) Hypokalemia Current Visit: Yes Status: Acute Plan to address problem: We will replete potassium and monitor chemistry. (5) DVT prophylaxis Current Visit: Yes Status: Acute Plan to address problem: Patient placed on subcutaneous Lovenox. (6) Full code status Current Visit: Yes Status: Acute Plan to address problem: Patient is full code 07/03/2020; patient is on IV Levaquin for bilateral pneumonia. Patient is on 3 L of intranasal oxygen for hypoxia. Patient was given dexamethasone. Patient was diagnosed with Covid before admission and will repeat Covid test. ID consulted. 07/04/2020; patient is on IV Levaquin for bilateral pneumonia. Patient is on IV dexamethasone. COVID-19 test is positive. Patient is on 3 L of oxygen. Consulted. 07/05/2020; IV antibiotic discontinued per ID recommendation. Patient is on dexamethasone. Patient started on remdesivir. Patient is on 3 L of oxygen. 07/06/2020; patient is on remdesivir day 3, continue with dexamethasone, patient was on 3 L of oxygen. Respiratory evaluated the patient, home O2 evaluation was done and her O2 saturation was 93% after ambulation. Patient will be discharged home with Decadron to finish a total of 10 days and Eliquis to prevent coagulation complications due to COVID-19 infection. History Interval history: Patient was seen and evaluated this morning Patient is on 3 L intranasal oxygen Patient does not have any complaints Hospitalist Physical - Physical exam Narrative exam: Not in cardiopulmonary distress. The patient is obese. Vital signs as documented. Head exam is unremarkable. No scleral icterus . Neck is without jugular venous distension, thyromegaly, or carotid bruits. Lungs are clear to auscultation. Cardiac exam reveals regular rate and Rhythm. Abdominal exam reveals normal bowel sounds, nontender, no organomegaly. Extremities are nonedematous and both femoral and pedal pulses are normal. FANS CLERK: Alert and oriented 3. No focal weakness. - Constitutional Vitals: Temp Pulse Resp BP Pulse Ox 95.6 F L 79 18 117/69 95 07/06/20 06:06 07/06/20 06:06 07/06/20 06:06 07/06/20 06:06 07/06/20 06:06 General appearance: Present: no acute distress, well-nourished HEART Score - HEART Score Troponin: Troponin T < 0.010 ng/mL (0.00-0.029) 07/02/20 19:23 Results - Labs CBC & Chem 7: 07/03/20 04:39 07/05/20 05:23 Labs: Laboratory Last Values WBC 5.6 K/mm3 (4.5-11.0) 07/03/20 04:39 RBC 4.45 M/mm3 (3.65-5.03) 07/03/20 04:39 Hgb 14.1 gm/dl (10.1-14.3) 07/03/20 04:39 Hct 40.7 % (30.3-42.9) 07/03/20 04:39 MCV 91 fl (79-97) 07/03/20 04:39 MCH 32 pg (28-32) 07/03/20 04:39 MCHC 35 % (30-34) H 07/03/20 04:39 RDW 12.7 % (13.2-15.2) L 07/03/20 04:39 Plt Count 304 K/mm3 (140-440) 07/03/20 04:39 Lymph % (Auto) 12.2 % (13.4-35.0) L 07/03/20 04:39 [place] % (Auto) 5.1 % (0.0-7.3) 07/03/20 04:39 Eos % (Auto) 0.0 % (0.0-4.3) 07/03/20 04:39 Baso % (Auto) 0.1 % (0.0-1.8) 07/03/20 04:39 Lymph # (Auto) 0.7 K/mm3 (1.2-5.4) L 07/03/20 04:39 [place] # (Auto) 0.3 K/mm3 (0.0-0.8) 07/03/20 04:39 Eos # (Auto) 0.0 K/mm3 (0.0-0.4) 07/03/20 04:39 Baso # (Auto) 0.0 K/mm3 (0.0-0.1) 07/03/20 04:39 Seg Neutrophils % 82.6 % (40.0-70.0) H 07/03/20 04:39 Seg Neutrophils # 4.6 K/mm3 (1.8-7.7) 07/03/20 04:39 PT 14.3 Sec. (12.2-14.9) 07/03/20 04:39 INR 1.13 (0.87-1.13) 07/03/20 04:39 D-Dimer 767.52 ng/mlDDU (0-234) H 07/02/20 19:23 ABG pH 7.462 pH Units (7.350-7.450) H 07/02/20 19:40 ABG pCO2 38.1 mm Hg 07/02/20 19:40 ABG pO2 51.9 mm Hg (80.0-90.0) L 07/02/20 19:40 ABG HCO3 26.6 mmol/L (20.0-26.0) H 07/02/20 19:40 ABG O2 Saturation 90.1 % (95.0-99.0) L 07/02/20 19:40 ABG O2 Content 17.7 (0.0-44) 07/02/20 19:40 ABG Base Excess 2.8 mmol/L (-2.0-3.0) 07/02/20 19:40 ABG Hemoglobin 14.3 gm/dl (12.0-16.0) 07/02/20 19:40 ABG Carboxyhemoglobin 1.2 % (0.0-5.0) 07/02/20 19:40 ABG Methemoglobin 0.6 % (0.0-1.5) 07/02/20 19:40 Oxyhemoglobin 88.4 % (95.0-99.0) L 07/02/20 19:40 FiO2 21 % 07/02/20 19:40 Sodium 139 mmol/L (137-145) 07/05/20 05:23 Potassium 3.4 mmol/L (3.6-5.0) L D 07/05/20 05:23 Chloride 99.2 mmol/L (98-107) 07/05/20 05:23 Carbon Dioxide 28 mmol/L (22-30) 07/05/20 05:23 Anion Gap 15 mmol/L 07/05/20 05:23 BUN 14 mg/dL (7-17) 07/05/20 05:23 Creatinine 0.6 mg/dL (0.6-1.2) 07/05/20 05:23 Estimated GFR > 60 ml/min 07/05/20 05:23 BUN/Creatinine Ratio 23 % 07/05/20 05:23 Glucose 110 mg/dL (65-100) H 07/05/20 05:23 Calcium 9.2 mg/dL (8.4-10.2) 07/05/20 05:23 Ferritin 1336.0 ng/mL (10.0-200.0) H 07/02/20 19:23 Lactate Dehydrogenase 394 units/L (91-180) H 07/02/20 19:23 Total Creatine Kinase 153 units/L (30-135) H 07/02/20 19:23 CK-MB (CK-2) 1.6 ng/mL (0.0-4.0) 07/02/20 19:23 CK-MB (CK-2) Rel Index 1.0 (0-4) 07/02/20 19:23 Troponin T < 0.010 ng/mL (0.00-0.029) 07/02/20 19:23 C-Reactive Protein 28.10 mg/dL (0.00-1.30) H 07/02/20 19:23 NT-Pro-B Natriuret Pep 83.89 pg/mL (0-900) 07/02/20 19:23 Procalcitonin < 0.05 ng/mL (<0.15) 07/02/20 19:23 Coronavirus (PCR) Positive (Negative) A 07/03/20 11:58 Microbiology: Microbiology 07/02/20 19:48 Peripheral/Venous Blood Culture - Preliminary NO GROWTH AFTER 72 HOURS 07/02/20 19:45 Peripheral/Venous Blood Culture - Preliminary NO GROWTH AFTER 72 HOURS [place]/IV: Voiding Method Toilet IV Catheter Type [Right Peripheral IV Antecubital] Active Medications - Current Medications Current Medications: Generic Name Dose Route Start Last Admin Trade Name Freq PRN Reason Stop Dose Admin Acetaminophen 650 mg 07/02/20 22:29 Acetaminophen 325 Mg Tab PO Q4H PRN Pain MILD(1-3)/Fever >100.5/COLEY Dexamethasone 6 mg 07/06/20 10:00 Dexamethasone 4 Mg Tab PO 07/11/20 12:00 DAILY JAE Enoxaparin Sodium 40 mg 07/04/20 12:00 07/05/20 22:35 Enoxaparin 40 Mg/0.4 Ml Inj SUB-Q 40 mg BID JAE Administration Protocol REMDESIVIR 100 mg/ Sodium 250 mls @ 500 mls/hr 07/05/20 21:00 07/05/20 22:39 Chloride IV 07/08/20 21:29 500 mls/hr Q24HR@2100 JAE Administration Magnesium Hydroxide 30 ml 07/02/20 22:29 Magnesium Hydroxide (Mom) Oral Liqd Udc PO Q4H PRN Constipation Ondansetron HCl 4 mg 07/02/20 22:29 Ondansetron 4 Mg/2 Ml Inj IV Q8H PRN Nausea And Vomiting Sodium Chloride 10 ml 07/03/20 10:00 07/05/20 22:36 Sodium Chloride 0.9% 10 Ml Flush Syringe IV 10 ml BID JAE Administration Sodium Chloride 10 ml 07/02/20 22:29 Sodium Chloride 0.9% 10 Ml Flush Syringe IV PRN PRN LINE FLUSH Sodium Chloride 50 ml 07/04/20 18:00 07/05/20 22:40 Sodium Chloride 0.9% 50 Ml Ivpb IV 07/07/20 21:01 50 ml Q24HR@2100 JAE Administration
[2020-07-06 08:16] LABS: Alanine Aminotransferase 24 units/L (7-56); Albumin 3.1 g/dL (3.9-5)
[2020-07-06 08:24] LABS: Bilirubin,Direct < 0.2 mg/dL (0-0.2)
[2020-07-06] MEDS ORDERED: DEXAMETHASONE 4 MG TAB PO SCH (10:00)
--- NOTE | 2020-07-06 10:32 | Progress Note ---
Assessment and Plan Cultures: SARS CoV2 PCR: Positive Blood culture: Negative A/P: 54-year-old female with fibromyalgia admitted with: #Bilateral pneumonia: Secondary to COVID-19 #Acute hypoxic respiratory failure: On oxygen by nasal cannula Recs: -Continue IV/PO Dexamethasone 6 mg daily x 10 days -Remdesivir, D3 -Procalcitonin is low, antibiotics not needed -prophylactic anticoagulation based on d-dimer per hospital protocol -trend ferritin, LDH, d-dimer, CRP every 2-3 days for risk stratification and to assess disease progression -oxygen weaning daily along with ambulatory saturations, if hypoxia better, Remdesivir can be stopped Erika Sweet MD, FACP [facility] ([facility]) O: [phone] F: [phone] Subjective Date of service: 07/06/20 Interval history: No fever. Stable on oxygen by nasal cannula at 3 L/min. Objective - Exam Narrative Exam: Physical Exam (reviewed in chart to minimize risk of transmission) Constitutional: deferred Head, Ears, Nose: deferred Eyes: deferred Neck: deferred Oral: deferred Cardiovascular: deferred Respiratory: deferred GI: deferred Musculoskeletal: deferred Skin: deferred Hem/Lymphatic: deferred Psych: deferred Neurological: deferred - Constitutional Vitals: Vital Signs Temp Pulse Resp BP Pulse Ox 95.6 F L 79 18 117/69 95 07/06/20 06:06 07/06/20 06:06 07/06/20 06:06 07/06/20 06:06 07/06/20 06:06 Temperature -Last 24 Hours Temperature 95.6 F Temperature 96.8 F Temperature 98.2 F Temperature 97.9 F - Labs CBC & Chem 7: 07/03/20 04:39 07/05/20 05:23 Labs: Abnormal lab results 07/06/20 Range/Units 06:41 Albumin 3.1 L (3.9-5) g/dL
[2020-07-06] MEDS: ENOXAPARIN 40 MG/0.4 ML INJ SUB-Q SCH (10:39)
--- NOTE | 2020-07-06 11:03 | Discharge Summary ---
Providers - Providers Date of Admission: 07/02/20 20:22 Date of discharge: 07/06/20 Attending physician: CHIN WARNER MD 07/02/20 22:29 Consult to Physician [CONS] Routine Comment: Consulting Provider: RAINER OROZCO Physician Instructions: Reason For Exam: PNEUMONIA. COVID 19 POSITIVE Hospitalization Reason for admission: acute hypoxic respiratory failure, covid-19 Condition: Stable Hospital course: 54-year-old female with no significant past medical history except fibromyalgia presenting to the emergency room today complaining of shortness of breath. She tested positive for COVID-19 about a week ago is also currently on admission in the ICU for COVID-19. She has been having a nonproductive cough, generalized fatigue and fever. Shortness of breath is said to have gotten worse sometime this afternoon and therefore decided to present in the emergency room. She denies any chest pain, no nausea vomiting, no abdominal pain, no diarrhea, no hematuria or dysuria.Upon arrival in the in the ER today oxygen saturation was about 88%. Work-up today reveals bilateral infiltrates seen on the chest x-ray. Labs shows mild hypokalemia of 3.1. Patient is being admitted with pneumonia possibly secondary to COVID-19. (1) Bilateral pneumonia Current Visit: Yes Status: Acute Plan to address problem: Patient admitted and placed on antibiotics. We will await culture results. (2) COVID-19 Current Visit: Yes Status: Acute Plan to address problem: Patient placed on isolation precautions patient. Consult placed to infectious disease for evaluation. Patient also placed on IV steroid. (3) Hypoxia Current Visit: Yes Status: Acute Plan to address problem: Possibly secondary to the Covid pneumonia. We will keep O2 saturation greater or equal to 94%. (4) Hypokalemia Current Visit: Yes Status: Acute Plan to address problem: We will replete potassium and monitor chemistry. (5) DVT prophylaxis Current Visit: Yes Status: Acute Plan to address problem: Patient placed on subcutaneous Lovenox. (6) Full code status Current Visit: Yes Status: Acute Plan to address problem: Patient is full code 07/03/2020; patient is on IV Levaquin for bilateral pneumonia. Patient is on 3 L of intranasal oxygen for hypoxia. Patient was given dexamethasone. Patient was diagnosed with Covid before admission and will repeat Covid test. ID consulted. 07/04/2020; patient is on IV Levaquin for bilateral pneumonia. Patient is on IV dexamethasone. COVID-19 test is positive. Patient is on 3 L of oxygen. Consulted. 07/05/2020; IV antibiotic discontinued per ID recommendation. Patient is on dexamethasone. Patient started on remdesivir. Patient is on 3 L of oxygen. 07/06/2020; patient is on remdesivir day 3, continue with dexamethasone, patient was on 3 L of oxygen. Respiratory evaluated the patient, home O2 evaluation was done and her O2 saturation was 93% after ambulation. Patient will be discharged home with Decadron to finish a total of 10 days and Eliquis to prevent coagulation complications due to COVID-19 infection. Patient discharged home stable condition. Disposition: - TO HOME OR SELFCARE Time spent for discharge: 34 minutes - Discharge Diagnoses (1) Bilateral pneumonia Status: Acute (2) COVID-19 Status: Acute (3) Hypokalemia Status: Acute (4) Hypoxia Status: Acute Core Measure Documentation - Palliative Care Palliative Care/ Comfort Measures: Not Applicable - Core Measures Any of the following diagnoses?: none Exam - Physical Exam Narrative exam: Not in cardiopulmonary distress. The patient is obese. Vital signs as documented. Head exam is unremarkable. No scleral icterus . Neck is without jugular venous distension, thyromegaly, or carotid bruits. Lungs are clear to auscultation. Cardiac exam reveals regular rate and Rhythm. Abdominal exam reveals normal bowel sounds, nontender, no organomegaly. Extremities are nonedematous and both femoral and pedal pulses are normal. 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 No focal weakness. - Constitutional Vitals: Temp Pulse Resp BP Pulse Ox 95.6 F L 79 18 117/69 95 07/06/20 06:06 07/06/20 06:06 07/06/20 06:06 07/06/20 06:06 07/06/20 06:06 Plan Activity: advance as tolerated Weight Bearing Status: Full Weight Bearing Diet: regular Follow up with: [facility] [Other] - 3-5 Days Prescriptions: dexAMETHasone [Decadron] 6 mg PO BID #18 tablet Apixaban [Eliquis] 5 mg PO BID #60 tablet
[2020-07-06 13:02] VITALS: BP 116/55
== END 2020-07-06 15:10 | disposition home or self-care (01) | DRG 177 ==
LOC: ED 17:11 → 3A 20:22
PROVIDERS: ADMIT Internal Medicine Geriatric Medicine; ATTEND Internal Medicine
PROC: XW033E5 Introduction of Remdesivir Anti-infective into Peripheral Vein, Percutaneous Approach, New Technology Group 5 (ICD-10-PCS; principal; 2020-07-04)
DX: U07.1 COVID-19 (principal); J12.89 Other viral pneumonia; J96.01 Acute respiratory failure with hypoxia; M79.7 Fibromyalgia; E87.6 Hypokalemia; Z90.49 Acquired absence of other specified parts of digestive tract; Z88.0 Allergy status to penicillin; Z88.5 Allergy status to narcotic agent
CPT/HCPCS: 36415; 71045; 80048; 80076; 82550; 82553; 82728; 82803; 82947; 83615; 83880; 84145; 84484; 85025; 85379; 85610; 86140; 87040; 94760; 96365; 96375; 96376; G0378; J1100; J1650; J1956; J8540; U0003